=== PATIENT | male | born 1995 | race Two or more races ===

== ENCOUNTER 2022-03-02 14:38 | Emergency (ER) | payer OTHER ==
[2022-03-02 15:49] LABS: BASOPHIL 0.4 % (0-2); EOSINOPHIL 1.6 % (0-5); HCT 45.7 % (42.0-52.0); HGB 15.8 g/dl (13.2-18.0); LYMPHOCYTE 28.9 % (15-48); MCH 29.9 pg (25.0-31.0); MCHC 34.6 g/dL (32.0-36.0); MCV 86.4 fL (78.0-100.0); MONOCYTE 7.3 % (0-12); MPV 11.7 fL (6.0-9.5); NEUTROPHIL 61.5 % (41-80); NRBC 0; PLT 273 K/uL (150-400); RBC 5.29 M/uL (4.70-6.00); RDW 12.4 % (11.5-14.0); WBC 8.9 K/uL (4.0-10.5)
[2022-03-02 16:15] LABS: ALBUMIN 3.8 g/dL (3.4-5.0); BILIRUBIN - TOTAL 0.5 mg/dL (0.2-1.0); BUN/CREAT RATIO (CALC) 20.9 RATIO; CREATININE 0.67 mg/dL (0.67-1.17); GLOBULIN (CALCULATION) 3.6 g/dL; POTASSIUM 4.1 mmol/L (3.5-5.1); TOTAL PROTEIN 7.4 g/dL (6.4-8.2)
== END 2022-03-02 18:31 | disposition home or self-care (01) ==
LOC: FER 14:38
PROVIDERS: Emergency Medicine
DX: R07.89 Other chest pain (principal); F41.9 Anxiety disorder, unspecified; I10 Essential (primary) hypertension; E11.9 Type 2 diabetes mellitus without complications; F17.200 Nicotine dependence, unspecified, uncomplicated
CPT/HCPCS: 36415; 70450; 71045; 80053; 84484; 85025; 93005

== ENCOUNTER 2022-03-10 10:32 | Emergency (ER) | payer OTHER ==
[2022-03-10 12:28] LABS: BASOPHIL 0.6 % (0-2); EOSINOPHIL 1.9 % (0-5); HCT 45.9 % (42.0-52.0); HGB 15.7 g/dl (13.2-18.0); LYMPHOCYTE 28.4 % (15-48); MCH 29.5 pg (25.0-31.0); MCHC 34.2 g/dL (32.0-36.0); MCV 86.3 fL (78.0-100.0); MONOCYTE 6.4 % (0-12); MPV 11.1 fL (6.0-9.5); NEUTROPHIL 62.5 % (41-80); NRBC 0; PLT 278 K/uL (150-400); RBC 5.32 M/uL (4.70-6.00); RDW 12.1 % (11.5-14.0); WBC 8.4 K/uL (4.0-10.5)
[2022-03-10 13:23] LABS: ALBUMIN 3.6 g/dL (3.4-5.0); BILIRUBIN - TOTAL 0.5 mg/dL (0.2-1.0); CREATININE 0.58 mg/dL (0.67-1.17); POTASSIUM 3.9 mmol/L (3.5-5.1); TOTAL PROTEIN 7.6 g/dL (6.4-8.2)
[2022-03-10 13:27] LABS: BILIRUBIN NEGATIVE (NEGATIVE); BLOOD NEGATIVE Ery/uL (NEGATIVE); CLARITY CLEAR (CLEAR); COLOR YELLOW (YELLOW); GLUCOSE (U) 3+ mg/dL (NORMAL); LEUKOCYTES NEGATIVE Leu/uL (NEGATIVE); NITRITE NEGATIVE (NEGATIVE); PROTEIN 1+ mg/dL (NEGATIVE); SPECIFIC GRAVITY 1.015 (1.001-1.030); UROBILINOGEN 0.2 mg/dL (0.2-1.0)
[2022-03-10 13:42] LABS: MUCOUS TRACE
== END 2022-03-10 16:34 | disposition home or self-care (01) ==
LOC: FER 10:32
PROVIDERS: Emergency Medicine
DX: E10.65 Type 1 diabetes mellitus with hyperglycemia (principal); I10 Essential (primary) hypertension; F17.200 Nicotine dependence, unspecified, uncomplicated; E66.9 Obesity, unspecified
CPT/HCPCS: 36415; 80053; 81001; 82009; 85025; J7030